=== PATIENT | female | born 1950 ===

== ENCOUNTER 2017-06-19 17:05 | Inpatient (IN) | payer OTHER ==
--- NOTE | 2017-06-19 17:31 | NUR ---
RECIEVED ON FLOOR PER STRETCHER/AMBULANCE TO ROOM 1118A.ORIENTED TO SURROUNDINGS AND CL.
[2017-06-19] MEDS ORDERED: ACETAMINOPHEN325 MG PO (17:46)
[2017-06-19] MEDS ORDERED: LIPITOR20 MG PO (17:46)
[2017-06-19] MEDS ORDERED: TOPROL XL100 MG PO (17:47)
[2017-06-19] MEDS ORDERED: NORVASC10 MG PO (17:48)
--- NOTE | 2017-06-19 19:15 | NUR ---
PT IS RESTING IN BED WITH EYES OPEN. ALERT AND ORIENTED X 3. PT DENIES ACUTE DISCOMFORT AT THIS TIME. LEFT SIDE NOTED TO BE FLACCID. PT ABLE TO SIGN HER ADMIT PAPERS WITH ASSIST. SR'S ARE UP X 3 IN BED. CALL LIGHT AND BEDSIDE TABLE ARE WITHIN EASY REACH.
--- NOTE | 2017-06-19 19:43 | NUR ---
PT. IN BED WITH HOB UP FOR COMFORT. NO VOICED NEEDS AND HER CALL LIGHT IS WITHIN REACH.
[2017-06-19 20:00] VITALS: BP 162/95; BMI 44.3
--- NOTE | 2017-06-19 21:54 | NUR ---
PT RESTING IN BED WITH EYES OPEN. SHE IS USING HER CALL LIGHT FREQUENTLY TO SAY THAT HER ROOMMATE IS STEALING HER HAIRBRUSH, WATER, ETC. I CONVINCED HER THAT SHE WAS NOT STEALING HER STUFF. I GOT HER A HAIRBRUSH AND FRESH WATER.
--- NOTE | 2017-06-19 23:48 | NUR ---
PT USED CALL LIGHT TO REQUEST 3 PILLOWS UNDER HER FEET. 3 PILLOWS PLACED UNDER HER FEET, WITH VERBAL RELIEF VOICED.
--- NOTE | 2017-06-20 03:49 | NUR ---
PT INC. OF URINE. INC. CARE GIVEN WITH MAX ASSIST OF 2 NURSES.
[2017-06-20 05:51] LABS: BASOPHILS 0.3 % (0-2); EOSINOPHILS 4.5 % (0-7); HEMATOCRIT 42.9 % (36.0-48.0); HEMOGLOBIN 14.4 g/dL (12-16); IMMATURE GRANULOCYTES 0.1 % (0-5); MCH 31.4 pg (26.0-34.0); MCHC 33.6 g/dL (31.0-37.0); MCV 93.5 fL (80.0-100.0); MEAN PLATELET VOLUME 12.4 fL (7.4-10.4); MONOCYTES 14.3 % (2-11); NEUTROPHILS 46.8 % (40-80); PLATELET COUNT 221 10x3/uL (130-400); RBC 4.59 10x6/uL (4.00-5.40); RDW 13.9 % (11.5-14.5); WBC 7.4 10x3/uL (4.8-10.8)
[2017-06-20 06:02] LABS: ANION GAP 14.1 mmol/L (8-16); CALCIUM 9.6 mg/dL (8.5-10.1); CARBON DIOXIDE 25.8 mmol/L (21.0-32.0); CREATININE - SERUM 1.1 mg/dL (0.6-1.3); POTASSIUM - SERUM 3.9 mmol/L (3.5-5.1)
--- NOTE | 2017-06-20 08:00 | NUR ---
SHIFT ASSMT COMPLETED.
--- NOTE | 2017-06-20 12:00 | NUR ---
UP IN BED FOR LUNCH.CL IN REACH.
[2017-06-20 13:37] VITALS: BMI 44.2
--- NOTE | 2017-06-20 16:00 | NUR ---
RESTING QUIETLY.CL IN REACH.
--- NOTE | 2017-06-20 19:30 | NUR ---
ASSISTED WITH BEDPAN.
--- NOTE | 2017-06-20 22:15 | NUR ---
RESTING IN BED, EYES CLOSED.
--- NOTE | 2017-06-21 02:21 | NUR ---
PT C/O BACK ITCHING, STATE UNABLE GO BACK TO SLEEP, MOISTURIZER LOTION APPLIED TO PT'S BACK, AND PT STATE HER BACK NOT ITCHING ANY MORE.
--- NOTE | 2017-06-21 05:25 | NUR ---
REST IN BED, EYE CLOSE, BED LOW, CALL LIGHT IN REACH.
[2017-06-21 08:00] VITALS: BP 130/99
--- NOTE | 2017-06-21 13:29 | NUR ---
SITTING UP IN W/C IN ROOM. CALL LIGHT IN REACH.
--- NOTE | 2017-06-21 18:13 | NUR ---
SITTING UP IN BED WATCHING TV AND VISITING WITH VISITOR.
--- NOTE | 2017-06-21 19:14 | NUR ---
PT IN BED WITH HOB UP FOR COMFORT. FAMILY AT BEDSIDE. NO O2. NO IV. INCONTINENT. MEDS IN APPLESAUCE. BED IN LOWEST POSITION AND CALL LIGHT WITHIN REACH.
[2017-06-21 20:00] VITALS: BP 185/99
--- NOTE | 2017-06-21 23:09 | NUR ---
PT IN BED WITH HOB UP FOR COMFORT. EYES CLOSED. CHEST RISING AND FALLING. BED IN LOWEST POSITION AND CALL LIGHT WITHIN REACH.
--- NOTE | 2017-06-22 01:30 | NUR ---
RE-SPREAD PATIENT'S COVERS SHE SAID HER LEGS WERE COOL CAUSING RIGHT LEG TO ACHE. ROOM TEMP IS REASONABLY WARM.
--- NOTE | 2017-06-22 05:30 | NUR ---
PT PUT ON BED CARTER. PT HAD A WATERY STOOL.
[2017-06-22 07:53] VITALS: BP 151/75
--- NOTE | 2017-06-22 08:15 | NUR ---
SITTING UP IN BED EATING BREAKFAST. USES LUE TO EAT. RICK HAS POOR FINE MOTOR SKILLS.
--- NOTE | 2017-06-22 10:02 | NUR ---
SITTING IN W/C IN ROOM. CONT OF B/B THIS MORNING. RT SIDED WEAKNESS STILL NOTED. SPEECH SLOW BUT ALMOST CLEAR. DENIES INCREASED PAIN. IS LEARNING TO WIPE BUTTOCK USING LUE NOW.
--- NOTE | 2017-06-22 14:12 | NUR ---
Nutrition Follow Up: Pt is eating 63% meal avg on a regular pureed diet with honey thick liquids. +BM 09/21/16. Wt stable. Meds and labs reviewed. Rec continue current diet per FRUIT HARVESTER MACHINE OPERATOR recs. RD following.
--- NOTE | 2017-06-22 18:39 | NUR ---
RESTING QUIETLY IN BED. CALL LIGHT IN REACH. BED IN LOWEST POSITION.
--- NOTE | 2017-06-22 18:55 | NUR ---
LOWERED HOB PER PATIENT REQUEST. DENIES FURTHER NEEDS.
--- NOTE | 2017-06-22 19:30 | NUR ---
PT IN BED WITH HOB UP FOR COMFORT. WATCHING TV. ALERT & ORIENTED. SOME CONFUSION AT TIMES. NO 02. NO IV. INCONTINENT. MEDS IN APPLESAUCE. BED IN LOWEST POSITION AND CALL LIGHT WITHIN REACH.
[2017-06-22 20:00] VITALS: BP 145/95
--- NOTE | 2017-06-22 23:30 | NUR ---
PT LYING IN BED WITH HOB UP FOR COMFORT. EYES CLOSED. CHEST RISING AND FALLING. BED IN THE LOWEST POSITION AND CALL LIGHT WITHIN REACH.
--- NOTE | 2017-06-23 03:30 | NUR ---
PT LYING IN BED. EYES CLOSED. RESPIRATIONS EVEN. LISBETH ALARM ON. BED IN LOWEST POSITION AND CALL LIGHT WITHIN REACH.
--- NOTE | 2017-06-23 06:05 | NUR ---
PT IN BED WITH HOB UP FOR COMFORT. WATCHING TV. RESP. EVEN. BED IN LOWEST POSITION AND CALL LIGHT WITHIN REACH.
[2017-06-23 06:32] LABS: BASOPHILS 0.3 % (0-2); EOSINOPHILS 4.1 % (0-7); HEMATOCRIT 41.9 % (36.0-48.0); HEMOGLOBIN 13.8 g/dL (12-16); IMMATURE GRANULOCYTES 0.1 % (0-5); LYMPHOCYTES 39.8 % (15-50); MCH 31.2 pg (26.0-34.0); MCHC 32.9 g/dL (31.0-37.0); MCV 94.8 fL (80.0-100.0); MEAN PLATELET VOLUME 11.9 fL (7.4-10.4); MONOCYTES 10.5 % (2-11); NEUTROPHILS 45.2 % (40-80); PLATELET COUNT 247 10x3/uL (130-400); RBC 4.42 10x6/uL (4.00-5.40); RDW 14.1 % (11.5-14.5); WBC 6.8 10x3/uL (4.8-10.8)
[2017-06-23 06:56] LABS: ANION GAP 10.8 mmol/L (8-16); CALCIUM 9.5 mg/dL (8.5-10.1); CARBON DIOXIDE 28.2 mmol/L (21.0-32.0)
[2017-06-23 07:52] VITALS: BP 138/86
--- NOTE | 2017-06-23 08:00 | NUR ---
SHIFT ASSMT COMPLETED.DENIES NEEDS.CL IN REACH.POS UP IN BED FOR MEAL.
--- NOTE | 2017-06-23 12:00 | NUR ---
SITTING UP EATING LUNCH.
--- NOTE | 2017-06-23 16:00 | NUR ---
IN BED RESTING QUIETLY.
--- NOTE | 2017-06-23 19:35 | NUR ---
RECIEVED UP IN BED WITH HOB ELEVATED TO 30 DEGREES. FAMILY AT BEDSIDE. DENIES ANY PAIN AT THIS TIME. CALL LIGHT AND OVERBED TABLE IN REACH.
[2017-06-23 20:38] VITALS: BP 142/89
--- NOTE | 2017-06-23 21:55 | NUR ---
REQUESTED PAIN PILL WHEN SHE RECIEVED HER NIGHT MEDICATION EARLIER. STATED PAIN AT 8 TO COCCYX. SOME REDNESS TO AREA. REPOSITIONED AND MEDICATION GIVEN. CALL LIGHT AND OVERBED TABLE IN REACH.
--- NOTE | 2017-06-24 04:04 | NUR ---
LAYING IN BED WITH EYES OPEN. ENVIRONMENTAL HEALTH SANITARIAN LIGHT SEVERAL TIMES THIS SHIFT. DENIES ANY PAIN. CALL LIGHT AND OVERBED TABLE IN REACH.
[2017-06-24 08:00] VITALS: BP 143/96
--- NOTE | 2017-06-24 19:30 | NUR ---
PT RESTING IN BED WATCHING TV. ALERT AND ORIENTED X 3. DENIES ACUTE DISCOMFORT AT THIS TIME. PT FLACCID ON THE LEFT SIDE. DENIES NEEDS AT THIS TIME. SR'S ARE UP X 3 IN BED. CALL LIGHT AND BEDSIDE TABLE ARE WITHIN EASY REACH. FAMILY MEMBER IS AT BEDSIDE.
[2017-06-24 20:00] VITALS: BP 151/105
--- NOTE | 2017-06-24 20:10 | NUR ---
PT. IN BED WITH HOB UP FOR COMFORT AND IS WATCHING TV. FAMILY MEMBER PRESENT VISITING. CALL LIGHT WITHIN REACH.
--- NOTE | 2017-06-24 21:03 | NUR ---
PT IS RESTING IN BED WITH EYES OPEN. NO NEEDS VOICED.
--- NOTE | 2017-06-25 00:02 | NUR ---
PT USED CALL LIGHT TO SAY SHE WAS WET, AND HER BACK WAS ITCHING. CALLIE CARE AND PAD CHANGE DONE WITH TOTAL ASSIST OF 2 NURSES. LOTION APPLIED TO BACK.
--- NOTE | 2017-06-25 00:18 | NUR ---
PT USED CALL LIGHT TO STATE THAT I HAD LAID HER DOWN IN A WET SPOT AFTER CLEANING HER UP, AND I NEEDED TO BE FIRED FOR NOT DOING A GOOD JOB. I INFORMED HER THAT YEN AND I DID NOT LAY HER DOWN IN A WET SPOT. PT DOES HAVE ANOTHER LARGE INCONT URINE AT THIS TIME THOUGH. CALLIE CARE AND PAD CHANGE DONE AGAIN. PT DENIES FURTHER NEEDS.
--- NOTE | 2017-06-25 06:13 | NUR ---
PT RESTING IN BED WATCHING TV. NO NEEDS VOICED.
--- NOTE | 2017-06-25 08:00 | NUR ---
SHIFT ASSMT COMPLETED.
[2017-06-25 08:15] VITALS: BP 156/100
--- NOTE | 2017-06-25 12:00 | NUR ---
SITTING UP IN BED FOR MEAL.
--- NOTE | 2017-06-25 16:00 | NUR ---
TURNED Q2H AND HEELS FLOATED.INCONT OF URINE X4 AND STOOL X1.
--- NOTE | 2017-06-25 19:32 | NUR ---
PT IS RESTING QUIETLY IN BED WITH EYES CLOSED. AWAKENS EASILY TO VERBAL STIMULI. ALERT AND ORIENTED X 3. PT DENIES ANY PAIN OR DISCOMFORT AT THIS TIME. LEFT SIDE IS FLACCID. PT TURNED AND REPOSITIONED Q2 HRS AND PRN. SR'S ARE UP X 3 IN BED. CALL LIGHT AND BEDSIDE TABLE ARE WITHIN EASY REACH.
--- NOTE | 2017-06-25 19:42 | NUR ---
PT. IN BED WITH HOB UP FOR COMFORT AND IS WATCHING TV. NO VOICED NEEDS AT THIS TIME AND SHE HAS HER CALL LIGHT WITHIN REACH.
[2017-06-25 20:00] VITALS: BP 148/97
--- NOTE | 2017-06-25 21:24 | NUR ---
PT RESTING IN BED WITH EYES OPEN. NO NEEDS VOICED.
--- NOTE | 2017-06-26 00:09 | NUR ---
PT ASSISTED TO TURN AND REPOSITION FREQUENTLY. STATES SHE IS UNABLE TO GET COMFORTABLE.
--- NOTE | 2017-06-26 03:02 | NUR ---
RESTING IN BED WITH EYES CLOSED.
--- NOTE | 2017-06-26 06:16 | NUR ---
PT RESTING IN BED WITH EYES OPEN WATCHING TV. ALERT AND ORIENTED X 3. DENIES ACUTE DISCOMFORT AT THIS TIME. NOTED TO BE INCONT OF A LARGE AMOUNT OF URINE. BED LINENS CHANGED AND BED BATH GIVEN. BUTT PASTE APPLIED TO BUTTOCKS FOR PROTECTION. PT IS VERY COOPERATIVE THIS AM, AND SAID THANK YOU NUMEROUS TIMES DURING AND AFTER THE PROCEDURE.
--- NOTE | 2017-06-26 07:39 | NUR ---
RECIEVED UP IN BED WITH EYES OPEN. DENIES ANY PAIN AT THIS TIME. PLEASANT AND COOPERATIVE. CALL LIGHT AND OVERBED TABLE IN REACH.
--- NOTE | 2017-06-26 09:11 | NUR ---
UP IN BED WITH TV ON AND BREAKFAST TRAY IN FRONT OF HER. ASKED IF SHE WAS'NT HUNGRY BECAUSE ONLY GRITS WERE EATEN. SAID SHE WAS'NT VERY HUNGRY. DID REQUEST ANOTHER CUP OF COFFEE. RETRIEVED ANOTHER CUP OF THICKEN COFFEE ATTHAT TIME. REQUESTED PAIN PILL FOT LEFT SHOULDER PAIN AT 9. MEDICATION GIVEN PER ORDERS.
[2017-06-26 09:32] VITALS: BP 162/103
--- NOTE | 2017-06-26 13:15 | NUR ---
CLINICALS FAXED TO [facility] AT [facility] AT WITH CONFORMATION RECIEVED
--- NOTE | 2017-06-26 20:15 | NUR ---
PT IN BED WITH HOB UP FOR COMFORT. FAMILY AT BEDSIDE. ALERT & ORIENTED. INCONTINENT. LEFT SIDE FLACCID. NO O2. NO IV. BED IN LOWEST POSITION AND CALL LIGHT WITHIN REACH.
[2017-06-26 23:06] VITALS: BP 135/93
--- NOTE | 2017-06-27 00:10 | NUR ---
REPOSITIONED PATIENT SLIGHTLY FOR COMFORT. REARRANGED HER PILLOWS.
--- NOTE | 2017-06-27 04:00 | NUR ---
READJUSTED PT IN BED.
--- NOTE | 2017-06-27 07:40 | NUR ---
ASSISTED UP IN BED AND SET UP BREAKFAST TRAY. ALERT AND ORIENTED X4. DENIES ANY NEEDS. C/O ITCHING ALL OVER APPLIED LOTION TO SKIN. CALL LIGHT WITHIN REACH, BED LOW AND ALARM ON. WILL CONTINUE TO MONITOR
[2017-06-27 08:00] VITALS: BP 107/58
--- NOTE | 2017-06-27 08:01 | NUR ---
PT EATING BREAKFAST, DENIES NEEDS. WCTM.
--- NOTE | 2017-06-27 11:00 | NUR ---
IN THERAPY GYM WITH PHYSICAL THERAPY. NO S/SX OF DISTRESS. WILL CONTINUE TO MONITOR
--- NOTE | 2017-06-27 13:57 | NUR ---
Nutrition Follow Up: Pt stated that her appetite is improving. She is eating 67% meal avg on a regular pureed diet with honey thick liquids. +BM 06/25/17. Meds and labs reviewed. Rec continue current diet per PROCESSOR INSPECTOR recs. RD following.
--- NOTE | 2017-06-27 15:42 | NUR ---
SITTING UP IN WC WATCHING TV. DENIES ANY NEEDS. CALL LIGHT WITHIN REACH, BED LOW AND ALARM ON. WILL CONTINUE TO MONITOR
--- NOTE | 2017-06-27 19:35 | NUR ---
PT IN BED WITH HOB UP FOR COMFORT. WATCHING TV. ALERT & ORIENTED. INCONTINENT. LEFT SIDE FLACCID. NO O2. NO IV. BED IN LOWEST POSITION AND CALL LIGHT WITHIN REACH.
--- NOTE | 2017-06-27 20:28 | NUR ---
PT. IN BED WITH HOB UP FOR COMFORT AND IS WATCHING TV. CALL LIGHT WITHIN REACH.
[2017-06-27 22:56] VITALS: BP 141/82
--- NOTE | 2017-06-28 00:20 | NUR ---
PT IN BED WITH HOB UP FOR COMFORT. EYES CLOSED. CHEST RISING AND FALLING. BED IN LOWEST POSITION AND CALL LIGHT WITHIN REACH.
--- NOTE | 2017-06-28 04:20 | NUR ---
PT IN BED WITH HOB UP FOR COMFORT. EYES CLOSED. CHEST RISING AND FALLING. BED IN LOWEST POSITION AND CALL LIGHT WITHIN REACH.
[2017-06-28 05:58] LABS: BASOPHILS 0.4 % (0-2); EOSINOPHILS 3.1 % (0-7); HEMATOCRIT 41.3 % (36.0-48.0); HEMOGLOBIN 13.7 g/dL (12-16); IMMATURE GRANULOCYTES 0.2 % (0-5); LYMPHOCYTES 42.3 % (15-50); MCH 31.4 pg (26.0-34.0); MCHC 33.2 g/dL (31.0-37.0); MCV 94.7 fL (80.0-100.0); MEAN PLATELET VOLUME 11.9 fL (7.4-10.4); MONOCYTES 12.2 % (2-11); NEUTROPHILS 41.8 % (40-80); PLATELET COUNT 261 10x3/uL (130-400); RBC 4.36 10x6/uL (4.00-5.40); RDW 13.8 % (11.5-14.5); WBC 5.5 10x3/uL (4.8-10.8)
[2017-06-28 06:21] LABS: ANION GAP 12.9 mmol/L (8-16); CALCIUM 9.1 mg/dL (8.5-10.1); CARBON DIOXIDE 26.8 mmol/L (21.0-32.0); CREATININE - SERUM 1.1 mg/dL (0.6-1.3); POTASSIUM - SERUM 3.7 mmol/L (3.5-5.1)
--- NOTE | 2017-06-28 08:11 | NUR ---
PT RESTING IN BED WITH EYES OPEN CALL LIGHT IN REACH WILL MONITER PT ASSISTED WITH SET UP FOR BREAKFAST
[2017-06-28 08:25] VITALS: BP 126/82
--- NOTE | 2017-06-28 12:28 | NUR ---
PT UP IN WHEELCHAIR EATING LUNCH CALL LIGHT IN REACH WILL MONITER
--- NOTE | 2017-06-28 16:09 | NUR ---
PT RESTING IN BED WITH EYES OPEN CALL LIGHT IN REACH WILL MONITER
--- NOTE | 2017-06-28 17:40 | NUR ---
EATING SUPPER.CL IN REACH.
--- NOTE | 2017-06-28 19:55 | NUR ---
PT. IN BED WITH HOB UP FOR COMFORT. VISITOR JUST LEFT FOR THE EVENING. ASSESSMENT COMPLETED. NO VOICED NEEDS AT THIS TIME AND HER CALL LIGHT IS WITHIN REACH.
[2017-06-28 20:00] VITALS: BP 130/92
--- NOTE | 2017-06-28 23:10 | NUR ---
PT. IN BED WITH HOB/FOB ELEVATED FOR COMFORT. EYES CLOSED AND RESP. EVEN. CALL LIGHT WITHIN REACH.
--- NOTE | 2017-06-28 23:10 | NUR ---
PT. IN BED WITH HOB/FOB ELEVATED FOR COMFORT. PT. STILL WATCHING TV OFF/ON AND DOZES OFF TO SLEEP IN BETWEEN WATCHING TV. CALL LIGHT WITHIN REACH.
--- NOTE | 2017-06-29 03:01 | NUR ---
PT. REQUESTED TO BE CLEANED UP SHE HAS URINATED IN THE BED. COMPLETE LINEN CHANGE AND PT. CLEANED UP. ALSO APPLIED CALMOSEPTINE AND LOTION TO BUTTOCK AND BACK. POSITIONED TO COMFORT AND CALL LIGHT WITHIN REACH.
[2017-06-29 08:00] VITALS: BP 147/72
--- NOTE | 2017-06-29 14:51 | RHP ---
PATIENT: MAY BARDALES MEDICAL RECORD: [id number] ACCOUNT: [id number] LOCATION:[facility]1116 : 52 ADMISSION DATE: 06/19/17 REHABILITATION HISTORY AND PHYSICAL EXAMINATION POST ADMISSION PHYSICIAN EXAMINATION Post-Admission Physical Examination and History and Physical DATE OF ADMISSION: 06/19/2017 ADMITTING DIAGNOSIS: Right middle cerebral artery ischemic stroke. HISTORY OF PRESENT ILLNESS: The patient is a 66-year-old female patient admitted to the inpatient rehab for a right middle cerebral artery ischemic stroke. She was admitted to the acute hospital after being found on the floor due to awakening and rolling on to the floor due to left-sided paralysis. The patient was found in the Emergency Room to have a middle cerebral artery stroke, BP was 200/115, new-onset atrial fibrillation, troponin was elevated with consistency with a non-ST segment FL. She was transferred from [place] to [facility] for neurology and cardiology care. She was noted to have left facial droop, left-sided weakness, slurred speech, has been seen by speech therapy and has failed swallow eval because of oropharyngeal dysphagia with all consistencies. After working with speech therapy, the patient has changed to a puree honey-thickened diet. She seems to be tolerating this well, dysarthria is improving, BP meds were changed to amlodipine 10 mg daily, metoprolol was increased to 100 mg daily and her blood pressure is better controlled. Cardiac monitoring shows AFib and flutter. Echo shows a decreased ejection fraction of 47% and left ventricular hypertrophy. 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 Currently, she is moderate to max assist for all ADLs and even mobility. COMORBIDITIES: In this patient include a non-ST segment elevation FL, oropharyngeal dysphagia, left facial asymmetry, dysarthria, new-onset AFib, flaccid hemiparesis on the left, decreased EF, dyspnea, nausea, leukocytosis, morbid obesity, elevated BP, elevated troponin, atrial fibrillation with rapid ventricular response, fall, slurred speech. PAST MEDICAL HISTORY: Significant for just hypertension and obesity. PAST SURGICAL HISTORY: None. ALLERGIES: No known drug allergies. CURRENT MEDICATIONS: Include Norvasc 10 mg daily, metoprolol 100 mg daily, atorvastatin 20 mg q.h.s., and acetaminophen 650 mg daily. HABITS: No alcohol or tobacco use. FAMILY HISTORY: Noncontributory. SOCIAL HISTORY: The patient hopes to return back home and get back to her prior level of functioning. REVIEW OF SYSTEMS: GENERAL: Complains mainly of one-sided weakness. HISTORY AND PHYSICAL [id number] MAY BARDALES HEENT: Denies cold, cough, or congestion. CARDIOVASCULAR: Denies chest pain. PHYSICAL EXAMINATION: VITAL SIGNS: Stable, afebrile. GENERAL: A somewhat obese black female, in no acute distress, alert upon exam. HEENT: Normocephalic and atraumatic. Mucosa moist. NECK: Supple. No lymphadenopathy. LUNGS: Clear in both cesar. CARDIOVASCULAR: Irregular rate and rhythm. ABDOMEN: Benign. EXTREMITIES: No clubbing, cyanosis or edema. NEUROLOGIC: Consistent with weakness, especially one-sided on her left side. LABORATORY DATA: White count 7.4, H&H 14 and 42, and platelet count was noted to be 221. Her sodium is 140, potassium 3.9, BUN and creatinine of 17 and 1.1 and blood sugar was noted to be 100. ASSESSMENT: This 66-year-old female patient was admitted to the rehab with a working diagnosis of a middle cerebral artery infarction with left hemiparesis. The patient has potential to make improvement. We instituted the following multidisciplinary therapies to include, but not limited to physical, occupational, respiratory, speech, nutritional services, prosthetics and orthotics. Given her complex condition and risk for more complications, rehabilitation services cannot be provided at a lower level of care such as a long term facility. PLAN: 1. Admit to [facility] rehab for intensive inpatient therapy to include the following disciplines: A. Physical therapy to improve gait, all transfer skills and bed mobility to a modified independent level. B. Occupational therapy to improve activities of daily living to a modified independent level. C. Case management to assist with discharge planning and placement options. D. Nutrition to assist with nutritional needs. E. Rehabilitation nursing to assist in monitoring the patient's underlying medical conditions and to assist with any type of bowel or bladder management. 2. The patient's current medications and medical care will be continued. 3. The patient will be placed on standard fall precautions. 4. The patient's estimated length of stay is approximately 7-10 days. 5. We will discuss this patient during care team staff meeting this week, also involve speech therapy and treat this as needed. TRANSINT:[id number] Voice Confirmation ID: [id number] DOCUMENT ID: [id number] NIRMAL notes whether there has been none or any medical/functional change since admission: - No change since prescreen. NIRMAL attests patient continues to be appropriate for IRF: - Continues to be appropriate. HISTORY AND PHYSICAL [id number] MAY BARDALES SCOTT MD at 1451 CC: [id number] DICTATION DATE: 06/20/17 1017 SENIOR MECHANICAL DEVELOPMENT ENGINEER: 06/20/[address] [facility] [address] [place] [address]
--- NOTE | 2017-06-29 17:47 | NUR ---
EATING SUPPER.CL IN REACH.
--- NOTE | 2017-06-29 18:24 | NUR ---
PT RESTING IN BED WITH EYES OPEN CALL LIGHT IN REACH WILL MONITER
[2017-06-29 20:30] VITALS: BP 163/124
--- NOTE | 2017-06-29 20:41 | NUR ---
PT'S BP WAS 163/124 IN RT ARM AND THEN 148/106 IN RT LEG. I RECHECKED BP IN RIGHT ARM AND IT WAS 172/108 AND THEN IN THE LT ARM IT WAS 148/101. WILL CNTINUE TO MONITOR.
--- NOTE | 2017-06-29 22:09 | NUR ---
PT'S BP IS NOW 149/84.
--- NOTE | 2017-06-30 02:00 | NUR ---
PT UP IN BED. WATCHING TV. BED IN LOWEST POSITION AND CALL LIGHT WITHIN REACH.
--- NOTE | 2017-06-30 03:30 | NUR ---
INCONTINET EPISODE. CHANGED PT'S PAD AND GOWN.
--- NOTE | 2017-06-30 04:59 | NUR ---
PT LYING IN BED WITH HOB UP FOR COMFORT. RESTING QUIETLY. BED IN LOWEST POSITION AND CALL LIGHT WITHIN REACH.
--- NOTE | 2017-06-30 08:00 | NUR ---
SHIFT ASSMT COMPLETED.INCONTINENT OF URINE,CLEANED AND CHANGED,REPOSITIONED FOR COMFORT.BREAKFAST GIVEN.MEAL SET-UP PROVIDED.
[2017-06-30 09:37] VITALS: BP 133/73
--- NOTE | 2017-06-30 12:00 | NUR ---
EATING LUNCH.DENIES NEEDS.
--- NOTE | 2017-06-30 16:00 | NUR ---
UP IN WC.CL IN REACH.
--- NOTE | 2017-06-30 19:30 | NUR ---
FAMILY/FRIENDS VISIT PT.
--- NOTE | 2017-06-30 22:10 | NUR ---
PATIENT WAS JUST CLEANSED AND CHANGED BY MATH SPECIALIST AFTER INCONTINENCE IN BED.
[2017-06-30 23:42] VITALS: BP 137/90
--- NOTE | 2017-07-01 03:55 | NUR ---
PT INCONTINENCE, CHANGE LINEN AND GOWN.
[2017-07-01 08:00] VITALS: BP 138/88
--- NOTE | 2017-07-01 08:19 | NUR ---
PT EATING BREAKFAST, DENIES NEEDS. WCTM.
--- NOTE | 2017-07-01 08:20 | NUR ---
PRN NORCO GIVEN FOR BUTTOM PAIN/DISC PER PATIENT REQUEST
--- NOTE | 2017-07-01 10:00 | NUR ---
PATIENT INCONT OF URINE. PATIENT CLEANED AND CALLIE CARE GIVEN.
--- NOTE | 2017-07-01 13:32 | NUR ---
PATIENT HAD A INCONT EPISOD OF BOWEL. TOTAL ASST OF THREE NURSES TO CLEAN PATIENT UP AND DO CALLIE CARE. VERY LARGE, LOOSE STOOL.
--- NOTE | 2017-07-01 19:30 | NUR ---
DAUGHTER TALKS TO PT IN ROOM.
[2017-07-01 21:10] VITALS: BP 152/84
--- NOTE | 2017-07-02 01:04 | NUR ---
REST IN BED, EYE CLOSE, BED LOW, CALL LIGHT IN REACH.
--- NOTE | 2017-07-02 02:07 | NUR ---
PT RESTING IN BED WITH EYES OPEN. PT STATED SHE WANTED TO GET UP IN HER WC AND GET SOME FRESH AIR. PT ENCOURAGED TO TRY AND GET SOME SLEEP TONIGHT AND GET UP DURING THE DAY. SHE WAS NOT HAPPY, BUT AGREED TO DO SO.
--- NOTE | 2017-07-02 03:50 | NUR ---
RESTING IN BED WITH EYES CLOSED. LAYING ON HER LEFT SIDE WITH HOB ELEVATED TO 30 DEGREES. NO S/S OF DISTRESS OBSERVED. CALL LIGHT AND OVERBED TABLE IN REACH.
--- NOTE | 2017-07-02 04:35 | NUR ---
PT INC OF BOWEL AND BLADDER. ENTIRE BED CHANGED. BED BATH DONE.
--- NOTE | 2017-07-02 06:29 | NUR ---
PT IS RESTING IN BED WITH EYES OPEN. INC. CARE GIVEN. REPOSITIONED IN BED TO PTS COMFORT.
[2017-07-02 08:00] VITALS: BP 163/76
--- NOTE | 2017-07-02 08:00 | NUR ---
PATIENT IS ALERT/ORIENT X4. LISBETH ALARM ON. CALL LIGHT WITHIN REACH. PATIENT VOICES NO NEEDS AT THIS TIME.
--- NOTE | 2017-07-02 09:35 | NUR ---
PATIENT HAD A MODERATE INCONT LOOSE BOWEL MOVEMENT. TOTAL ASST OF TWO WITH CARE.
--- NOTE | 2017-07-02 10:30 | NUR ---
PRN PAIN MEDICATION GIVEN FOR RIGHT HIP PAIN/DISC PER PATIENT REQUEST
[2017-07-02 12:07] VITALS: BP 163/76
--- NOTE | 2017-07-02 12:29 | NUR ---
PT EATING LUNCH, DENIES NEEDS. WCTM.
--- NOTE | 2017-07-02 17:39 | NUR ---
PATIENT INCONT OF BOWEL AND BLADDER. TOTAL ASST WITH CARE. PATIENT IS FLACCID ON LEFT SIDE
[2017-07-02 21:16] VITALS: BP 144/75
--- NOTE | 2017-07-02 21:50 | NUR ---
PT INCONTINENCE BM, CLEAN PERINEAL AREA, AND CHANGE LINE AND GOWN.
--- NOTE | 2017-07-03 04:13 | NUR ---
RESTING IN BED WITH EYES CLOSED.NO S/S OF DISTRESS OBSERVED. LAYNG ON HER LEFT SIDE AT THIS TIME. CALL LIGHT AND OVERBED TABLE IN REACH.
--- NOTE | 2017-07-03 04:30 | NUR ---
REST IN BED, EYE CLOSE, CALL LIGHT IN REACH.
[2017-07-03 05:50] LABS: BASOPHILS 0.6 % (0-2); EOSINOPHILS 2.9 % (0-7); HEMATOCRIT 43.1 % (36.0-48.0); HEMOGLOBIN 13.9 g/dL (12-16); LYMPHOCYTES 48.3 % (15-50); MCH 31.2 pg (26.0-34.0); MCHC 32.3 g/dL (31.0-37.0); MCV 96.6 fL (80.0-100.0); MEAN PLATELET VOLUME 11.7 fL (7.4-10.4); MONOCYTES 10.6 % (2-11); NEUTROPHILS 37.6 % (40-80); PLATELET COUNT 254 10x3/uL (130-400); RBC 4.46 10x6/uL (4.00-5.40); WBC 5.2 10x3/uL (4.8-10.8)
[2017-07-03 06:16] LABS: CALCIUM 9.5 mg/dL (8.5-10.1); CARBON DIOXIDE 24.5 mmol/L (21.0-32.0); CREATININE - SERUM 0.9 mg/dL (0.6-1.3)
[2017-07-03 06:23] LABS: POTASSIUM - SERUM 4.5 mmol/L (3.5-5.1)
--- NOTE | 2017-07-03 06:56 | NUR ---
RESTING QUIETLY IN BED. BED IN LOWEST POSITION. CALL LIGHT IN REACH.
[2017-07-03 08:38] VITALS: BP 137/77
--- NOTE | 2017-07-03 09:02 | NUR ---
PATIENTS DAUGHTER IN ROOM. WAITING TO TALK TO CHRISTI COLEMAN.
--- NOTE | 2017-07-03 11:00 | NUR ---
PATIENT IN REHAB ROOM. WORKING WITH PHYSICAL THERAPIST. DENIES ANY PAIN/DISC AT THIS TIME.
--- NOTE | 2017-07-03 15:07 | NUR ---
PATIENT INCONT OF B/B. TOTAL ASST OF TWO FOR CALLIE CARE AND BATHING. FLACCID ON THE LEFT SIDE FROM CVA
--- NOTE | 2017-07-03 17:29 | NUR ---
PATIENT LYING IN BED EATTING SUPPER. FAMILY IN ROOM VISITING
--- NOTE | 2017-07-03 19:25 | NUR ---
PT. IN BED WITH HOB/FOB ELEVATED FOR COMFORT AND IS WATCHING TV. ASSESSMENT COMPLETED. NO VOICED NEEDS. CALL LIGHT WITHIN REACH.
[2017-07-03 20:00] VITALS: BP 150/83
--- NOTE | 2017-07-03 23:12 | NUR ---
PT. IN BED WITH HOB/FOB ELEVATED FOR COMFORT. EYES CLOSED AND RESP. DEEP AND EVEN. CALL LIGHT REMAINS WITHIN REACH.
--- NOTE | 2017-07-04 03:10 | NUR ---
PT. REQUESTING TO BE REPOSITIONED AND PT. WAS FOUND TO BE INCONTINENT OF URINE. PT. CLEANED, FRESH LINENS PLACED AND PT. REPOSTIONED TO COMFORT AT HER REQUEST. CALL LIGHT WITHIN REACH.
--- NOTE | 2017-07-04 08:00 | NUR ---
CLEANED AFTER BEING INCONTINENT OF URINE.POSITIONED UP IN BED.BREAKFAST GIVE,
[2017-07-04 08:41] VITALS: BP 154/82
--- NOTE | 2017-07-04 12:00 | NUR ---
SITTING UP IN [facility].LUNCH GIVEN.CL IN REACH.
--- NOTE | 2017-07-04 14:15 | NUR ---
Nutrition Follow Up: Pt is eating 46% meal avg on a regular diet. +BM 07/02/17. Meds and labs reviewed. Rec continue current diet. RD following.
--- NOTE | 2017-07-04 14:17 | NUR ---
CLINICALS FAXED TO [facility]SON [facility] AT [facility] WITH CONFORMATION RECIEVED
--- NOTE | 2017-07-04 16:00 | NUR ---
ASSISTED BACK TO BED.POS FOR COMFORT.
--- NOTE | 2017-07-04 16:01 | NUR ---
PATIENT ADMITTED TO REHAB FROM AN ACUTE FACILITY . SHE PRESENTED TO ER AT [facility] AND THEN SHE WAS TRANSFERRED FROM TO [facility]. WILL CONTINUE TO FOLLOW WITH PATIENT AND WILL ASSIT WITH DISCHARGE NEEDS. HER PCP IS DR. CARLTON IN [place]
--- NOTE | 2017-07-04 19:15 | NUR ---
PT. IN BED WITH HOB UP FOR COMFORT AND IS WATCHING TV. NO VOICED NEEDS AT THIS TIME AND HER CALL LIGHT IS WITHIN REACH.
--- NOTE | 2017-07-04 22:00 | NUR ---
CHECKED PT'S B/P PRIVACY COMPLIANCE MANAGER REPORTED HER RESULT WAS ELEVATED. B/P TO RUE WAS 170/108 AND PT. DENIES ANY S/S ELEVATED B/P. WILL INFORM
[2017-07-04 22:09] VITALS: BP 168/108
--- NOTE | 2017-07-04 23:10 | NUR ---
PT. IN BED WITH HOB/FOB UP FOR COMFORT AND IS WATCHING TV. CALL LIGHT WITHIN REACH.
--- NOTE | 2017-07-05 03:20 | NUR ---
PT. IN BED WITH HOB/FOB ELEVATED FOR COMFORT. EYES CLOSED AND RESP. EVEN. CALL LIGHT WITHIN REACH.
--- NOTE | 2017-07-05 08:00 | NUR ---
SHIFT ASSMT COMPLETED.DENIES NEEDS.MEAL SET-UP PROVIDED.CL IN REACH.
[2017-07-05 08:43] VITALS: BP 148/82
--- NOTE | 2017-07-05 12:00 | NUR ---
SITTING UP IN WC EATING.CL IN REACH.
--- NOTE | 2017-07-05 14:59 | NUR ---
PATIENT GAVE VERBAL OK TO FAX DISABLITY FORMS TO SISTER JAN AT , CONFORMATION RECIEVED
--- NOTE | 2017-07-05 15:27 | NUR ---
CARE TEAM MEETING: PATIENT PROGRESSING IN THERAPY. SPOKE WITH PATIENT REGARDING DISCHARGE PLANS. SHE WILL SPEAK WITH HER DAUGHTERS BUT SHE WILL LET ME KNOW TO WHICH FACILITY IN [place] SHE WANTS TO DISCHARGE TO. WILL CONTINUE TO FOLLOW WITH PATIENT AND WILL ASSIST WITH DISCHARGE NEEDS.
--- NOTE | 2017-07-05 16:24 | NUR ---
REFERRAL BEING FAXED TO [facility] PER FAMILY AND PATIENT REQUEST
--- NOTE | 2017-07-05 19:25 | NUR ---
PT. IN BED WITH HOB/FOB ELEVATED FOR COMFORT AND IS WATCHING TV. NO VOICED NEEDS. ASSESSMENT COMPLETED. CALL LIGHT WITHIN REACH.
[2017-07-05 20:30] VITALS: BP 153/81
--- NOTE | 2017-07-05 23:10 | NUR ---
PT. IN BED WITH HOB/FOB ELEVATED FOR COMFORT. LE'S ELEVATED UP ON PILLOWS AND LUE ALSO PLACED ON PILLOW. PT. WATCHING TV AND HAS NO VOICED NEEDS. CALL LIGHT WITHIN REACH.
--- NOTE | 2017-07-06 03:05 | NUR ---
PT. IN BED WITH HOB/FOB ELEVATED FOR COMFORT WITH EYES CLOSED AND RESP. EVEN. CALL LIGHT REMAINS WITHIN REACH.
--- NOTE | 2017-07-06 07:21 | NUR ---
RESTING QUIETLY IN BED. BED IN LOWEST POSITION. CALL LIGHT IN REACH
[2017-07-06 08:05] VITALS: BP 135/104
--- NOTE | 2017-07-06 11:34 | NUR ---
BRIELLE FROM [facility] HAS NOTIFIED ME THAT THEY ARE NOT IN NETWORK WITH [facility]. SHE HAS NOTIFIED FAMILY.
--- NOTE | 2017-07-06 18:04 | NUR ---
EATING SUPPER IN BED. DENIES NEEDS
--- NOTE | 2017-07-06 19:26 | NUR ---
RECIEVED UP IN BED WITH EYES OPEN AND TV ON. ALERT AND ORIENTED. PLEASANT AND COOPERATIVE. DENIES ANY PAIN AT THIS TIME. CALL LIGHT AND OVERBED TABLE IN REACH.
--- NOTE | 2017-07-06 21:20 | NUR ---
RESTING IN BED WITH EYES OPEN AND TALKING WITH AIDE. PLEASANT AND TALKATIVE. NO S/S OF DISTRESS OBSERVED. CALL LIGHT AND OVERBED TABLE IN REACH.
[2017-07-06 22:56] VITALS: BP 181/97
--- NOTE | 2017-07-07 00:22 | NUR ---
RESTING IN BED WITH EYES CLOSED. NO S/S OF DISTRESS OBSERVED. CALL LIGHT AND OVERBED TABLE IN REACH.
--- NOTE | 2017-07-07 00:34 | NUR ---
RESTING IN BED WITH EYES CLOSED. NO S/S OF DISTRESS OBSERVED. CALL [facility]IG[facility] AND OVERBED TABLE IN REACH.
--- NOTE | 2017-07-07 02:35 | NUR ---
CALLED THIS NURSE TO ROOM WITH REQUEST TO BE TRANSFERED TO [facility] IN [place]. EXPLAINED SHE WOULD HAVE TO BE DISCHARGED FROM HERE AND HER DOCTOR WOULD BE IN TOMORROW. EARLIER C/O SLEEPING PILL STOPED BY THE DOCTOR AND SHE COULD'NT SLEEP. EXPLAINED THAT IT WAS JUST A LITTLE AFTER 8PM. ASKED HER WHAT TIME SHE WENT TO BED AT HOME WHEN SHE WAS OFF OF WORK. REPLIED "OH ABOUT 2 AM".
--- NOTE | 2017-07-07 03:15 | NUR ---
REQUESTED B/P BE RECHECKED STATED"IS'NT MY B/P HIGH". RECHECKED AND B/P 145/89 WITH PULSE 62. THEN C/O RIGHT SHOULDER PAIN AT 8 AND REQUESTED A PAIN PILL. MEDS GIVEN PER ORDERS. C/O NOT BEING ABLE TO SLEEP.
--- NOTE | 2017-07-07 04:21 | NUR ---
RESTING IN BED WITH EYES CLOSED. NO S/S OF DISTRESS OBSERVED. BED ALARM ON AND FUNCTIONING PROPERLY. CALL LIGHT AND OVERBED TABLE IN REACH.
[2017-07-07 05:16] LABS: BASOPHILS 0.2 % (0-2); EOSINOPHILS 2.2 % (0-7); HEMATOCRIT 42.5 % (36.0-48.0); HEMOGLOBIN 13.9 g/dL (12-16); IMMATURE GRANULOCYTES 0.2 % (0-5); LYMPHOCYTES 39.9 % (15-50); MCH 31.2 pg (26.0-34.0); MCHC 32.7 g/dL (31.0-37.0); MCV 95.3 fL (80.0-100.0); MONOCYTES 9.8 % (2-11); NEUTROPHILS 47.7 % (40-80); PLATELET COUNT 236 10x3/uL (130-400); RBC 4.46 10x6/uL (4.00-5.40); RDW 13.4 % (11.5-14.5); WBC 5.4 10x3/uL (4.8-10.8)
[2017-07-07 06:33] LABS: ANION GAP 17.7 mmol/L (8-16); CALCIUM 10.2 mg/dL (8.5-10.1); CARBON DIOXIDE 24.4 mmol/L (21.0-32.0); CREATININE - SERUM 1.1 mg/dL (0.6-1.3); POTASSIUM - SERUM 5.1 mmol/L (3.5-5.1)
--- NOTE | 2017-07-07 12:09 | NUR ---
LAYING IN BED WITH EYES OPEN AND TV ON. DENIES ANY PAIN AT THIS TIME. CALL LIGHT AND OVERBED TABLE IN REACH.
--- NOTE | 2017-07-07 12:19 | NUR ---
PATIENT WOULD LIKE [facility]FERR[facility] IF THEY ACCEPT HER INSURANCE.
--- NOTE | 2017-07-07 12:20 | NUR ---
SPOKE WITH SON AND HE SAYS HIS MOTHER HAS MEDICARE A, EXPLAINED THAT MEDICARE A WAS JUST FOR HOSPITAL , HE IS CHECKING ON GETTING HER A & B.
[2017-07-07 15:50] VITALS: BP 156/111
[2017-07-07 18:15] VITALS: BP 155/105
--- NOTE | 2017-07-07 19:05 | NUR ---
RECIEVED UP IN BED WITH EYES CLOSED AND TV ON. NO S/S OF DISTRESS OBSERVED. CALL LIGHT AND OVERBED TABLE IN REACH.
[2017-07-07 19:26] VITALS: BP 155/105
[2017-07-08 08:00] VITALS: BP 128/88
--- NOTE | 2017-07-08 08:00 | NUR ---
SHIFT ASSMT COMPLETED.POS UP IN BED FOR MEAL.SET-UP PROVIDED.
--- NOTE | 2017-07-08 12:00 | NUR ---
SITTING UP IN BED FOR MEAL.CL IN REACH.COMPANY VISITING.
--- NOTE | 2017-07-08 14:13 | NUR ---
C/O PAIN IN LOWER BACK AND LEFT SIDE 8/10 THROBBING REQUESTED PAIN MEDICATION. WILL CHECK AND SEE WHEN NEXT ADMINISTRATION DUE AND GIVE APPROPRIATELY.
--- NOTE | 2017-07-08 19:30 | NUR ---
ASSISTED Vin WALL RN WITH GETTING PT. TO THE TOP OF MATTRESS PER PT'S REQUEST. POSITIONED PT. TO COMFORT WITH HOB/FOB UP AND PILLOWS FOR SUPPORT. ASSESSMENT COMPLETED. NO VOICED NEEDS AT THIS TIME AND HER CALL LIGHT IS WITHIN REACH.
[2017-07-08 20:15] VITALS: BP 150/71
--- NOTE | 2017-07-08 23:19 | NUR ---
PT. IN BED WITH HOB/FOB ELEVATED FOR COMPORT WITH PILLOW UNDER LUE AND BLE'S TO BRIDGE HEELS. EYES CLOSED AND RESP. EVEN WITH CALL LIGHT WITHIN REACH.
--- NOTE | 2017-07-09 03:10 | NUR ---
PT. IN BED WITH HOB/FOB ELEVATED FOR COMFORT WITH EYES CLOSED AND RESP. EVEN. CALL LIGHT WITHIN REACH.
[2017-07-09 08:00] VITALS: BP 141/93
--- NOTE | 2017-07-09 08:00 | NUR ---
SHIFT ASSMT COMPLETED.DENIES NEEDS,POS UP IN BED FOR BREAKFAST.CL IN REACH.MEAL SET-UP PROVIDED.
--- NOTE | 2017-07-09 12:00 | NUR ---
BED BATH GIVEN.CLOTHES AND LINENS CHANGED.REFUSED SHOWER.EXPLAINED SHOWER SCHEDULE;STATES UNDERSTANDING THAT NEXT SHOWER IS MONDAY;STATED I JUST WANT A BEDBATH TODAY AND NOT A SHOWER.MEAL SET-UP PROVIDED FOR LUNCH.
--- NOTE | 2017-07-09 16:00 | NUR ---
RESTING QUIETLY IN BED.CL IN REACH.
--- NOTE | 2017-07-09 19:30 | NUR ---
PT. IN BED WITH HOB UP FOR COMFORT AND LE'S ELEVATED UP ON PILLOW. PT. ALSO HAS A PILLOW UNDER HER LUE FOR SUPPORT. FAMILY MEMBER PRESENT VISITING. ASSESSMENT COMPLETED. PT. REQUESTED TO BE PULLED UP TO THE TOP OF THE BED. WITH VERBEL CUES PT. WAS ABLE TO PULL HERSELF ALL THE WAY TO THE TOP OF HER BED BY HERSELF. DAUGHTER EVEN VERIFIED TO PT. THAT SHE DID IT ALL BY HERSELF. CALL LIGHT WITHIN REACH, AND PT. REPORTS SHE IS MUCH MORE COMFORTABLE NOW.
[2017-07-09 20:20] VITALS: BP 142/89
--- NOTE | 2017-07-09 23:20 | NUR ---
PT. IN BED WITH HOB/FOB ELEVATED FOR COMFORT. EYES CLOSED AND RESP. EVEN WITH CALL LIGHT WITHIN REACH.
--- NOTE | 2017-07-10 03:10 | NUR ---
PT. IN BED LYING ON HER LEFT SIDE. EYES CLOSED AND RESP. EVEN. CALL LIGHT WITHIN REACH.
[2017-07-10 05:53] LABS: BASOPHILS 0.2 % (0-2); EOSINOPHILS 2.8 % (0-7); LYMPHOCYTES 45.7 % (15-50); MCH 30.5 pg (26.0-34.0); MCHC 32.6 g/dL (31.0-37.0); MCV 93.7 fL (80.0-100.0); MONOCYTES 10.2 % (2-11); NEUTROPHILS 41.1 % (40-80); PLATELET COUNT 203 10x3/uL (130-400); RBC 4.59 10x6/uL (4.00-5.40); RDW 13.3 % (11.5-14.5); WBC 5.4 10x3/uL (4.8-10.8)
[2017-07-10 06:06] LABS: ANION GAP 10.3 mmol/L (8-16); CALCIUM 9.6 mg/dL (8.5-10.1); CARBON DIOXIDE 29.4 mmol/L (21.0-32.0); CREATININE - SERUM 1.1 mg/dL (0.6-1.3); POTASSIUM - SERUM 3.7 mmol/L (3.5-5.1)
[2017-07-10 07:04] VITALS: BP 128/81
--- NOTE | 2017-07-10 07:59 | NUR ---
SITTING UP EATING BREAKFAST. BED IN LOWEST POSITION. CALL LIGHT IN REACH.
[2017-07-10 09:13] VITALS: BP 142/85
--- NOTE | 2017-07-10 10:49 | NUR ---
PATIENT HAS BEEN ACCEPTED TO [facility] IN [facility] AND WILL DISCHARGE THERE ON 07/13/17. PATIENT WILL CALL DAUGHTER . WILL CONTINUE TO FOLLOW WITH PATIENT UNTIL DISCHARGED.
--- NOTE | 2017-07-10 12:18 | NUR ---
SITTING UP IN W/C EATING LUNCH. CALL LIGHT IN REACH
--- NOTE | 2017-07-10 17:00 | NUR ---
RESTING QUIETLY IN BED. DENIES NEEDS OR C/O. FEEDS SELF WITH RUE. INCONT OF B/B.
--- NOTE | 2017-07-10 19:01 | NUR ---
RECIEVED UP IN BED WITH DAUGHTER AT BEDSIDE. PLEASANT AND COOPERATIVE. DENIES ANY PAIN.
[2017-07-10 19:04] VITALS: BP 128/81
--- NOTE | 2017-07-10 21:07 | NUR ---
RESTING IN BED WITH EYES CLOSED. NO S/S OF DISTRESS OBSERVED. CALL LIGHT AND OVERBED TABLE IN REACH.
--- NOTE | 2017-07-11 08:04 | NUR ---
SITTING UP IN BED EATING BREAKFAST. LUE AND LLE FLACCID. INCONT OF B/B
[2017-07-11 08:36] VITALS: BP 168/100
--- NOTE | 2017-07-11 11:01 | NUR ---
Nutrition Follow Up: Pt is eating 64% meal avg on a regular [facility] soft diet with thin liquids. +BM 07/06/17 - no BM x 5 days. Meds and labs reviewed. Rec continue regular diet with PHOTO MACHINE OPERATOR recs for consistencies. RD following.
--- NOTE | 2017-07-11 12:29 | NUR ---
SITTING IN W/C IN ROOM EATING LUNCH. DENIES INCREASED PAIN.
--- NOTE | 2017-07-11 19:00 | NUR ---
RECIEVED UP IN BED WITH HOB ELEVATED. PLEASANT AND COOPERATIVE.DENIES ANY PAIN AT THIS TIME.CALL LIGHT AND OVERBED TABLE IN REACH
[2017-07-11 20:07] VITALS: BP 136/87
--- NOTE | 2017-07-12 02:24 | NUR ---
RESTING IN BED WITH EYES OPEN MOST OF SHIFT. CHECKED AND CHANGED EARLIER. ASKED IF SHE KNEW WHEN SHE NEEDED TO URINATE AND STATED "YEAH, BUT IT'S USUALLY TO LATE BY THEN". REPOSITIONED AT THAT TIME X2 PERSONS. CALL LIGHT AND OVER BED TABLE IN REACH.
[2017-07-12 08:15] VITALS: BP 150/78
--- NOTE | 2017-07-12 16:14 | NUR ---
PATIENT WILL DISCHARGE TO [facility] ON 07/13/17 PER FACILITY VAN.FAMILY HAS BEEN NOTIFIED. NO DME OR HOME HEALTH NEEDED AT THIS TIME. AN APPOINTMENT WITH DR. CARLTON WILL BE MADE AT TIME OF DISCHARGE FROM FACILITY. PATIENT CHOICE FORM FOR SNF AND [facility] FORM SIGNED, EXPLAINED AND FILED IN CHART. WILL CONTINUE TO FOLLOW WITH PATIENT UNTIL DISCHARGED
--- NOTE | 2017-07-12 19:00 | NUR ---
RESTING IN BED WITH EYES CLOSED/ NO S/S OF DISTRESS OBSERVED. CALL [facility] AND OVERBED TABLE IN REACH.
--- NOTE | 2017-07-12 20:00 | NUR ---
LAYING IN BED WITH EYES OPEN AND TV ON. PLEASANT AND COOPERATIVE. CONT TO HAVE FLACCID LEFT SIDE R/T CVA. DENIES ANY PAIN AT THIS TIME. CALL LIGHT AND OVERBED TABLE IN REACH.
[2017-07-12 23:16] VITALS: BP 151/93
--- NOTE | 2017-07-13 03:56 | NUR ---
CHECKED AND CHANGED. AWAKE,ALERT AND ORIENTED. PLEASANT AND COOPERATIVE. DENIES ANY PAIN. ABLE TO PULL HERSELF UP IN THE BED. CALL LIGHT AND OVERBED TABLE IN REACH.
--- NOTE | 2017-07-13 06:00 | NUR ---
RESTING IN BED WITH EYES CLOSED. NO S/S OF DISTRESS OBSERVED. CALL [facility] AND OVERBED TABLE IN REACH.
--- NOTE | 2017-07-13 08:00 | NUR ---
SHIFT ASSMT COMPLETED.PLAN ON DISCHARGING TO [facility].BREAKFAST SET UP GIVEN.
[2017-07-13] MEDS ORDERED: ALTACE5 MG PO (08:49)
[2017-07-13] MEDS ORDERED: HYDROCODON-ACE1 EAC7 PO (08:50)
[2017-07-13 08:52] VITALS: BP 154/97
--- NOTE | 2017-07-13 11:35 | NUR ---
[facility] .PT IN STABLE CONDITION.
--- NOTE | 2017-07-17 10:55 | NUR ---
LATE ENTRY. DISCHARGE CLINICAL HAS BEEN FAXED TO [facility] AT [facility] , AUTH. # [id number], WITH CONFORMATION RECIEVED
== END 2017-07-13 11:35 | DRG 64 ==
LOC: D.REHAB 17:05
PROVIDERS: ADMIT Emergency Medicine
DX: I63.8 Other cerebral infarction (principal); I21.4 Non-ST elevation (NSTEMI) myocardial infarction; I69.354 Hemiplegia and hemiparesis following cerebral infarction affecting left non-dominant side; I48.91 Unspecified atrial fibrillation; R13.12 Dysphagia, oropharyngeal phase; R06.00 Dyspnea, unspecified; D72.829 Elevated white blood cell count, unspecified; E66.01 Morbid (severe) obesity due to excess calories; R47.81 Slurred speech; W19.XXXD Unspecified fall, subsequent encounter; I10 Essential (primary) hypertension; R29.810 Facial weakness